=== PATIENT | male | born 1945 | race Caucasian/White ===

== ENCOUNTER → 2020-07-10 | Day surgery (SDC) | payer MEDICARE, OTHER ==
[~2020-07-10] MED LIST: AGGRENOX 25 MG1 EACH PO; ASPIRIN EC81 MG PO; ATORVASTATIN CA10 MG PO; DEXAMETHASONE1 MG PO; ELIQUIS5 MG PO; FAMOTIDINE20 MG PO; FLOMAX 0.4 MG0.4 MG PO; HYDROCODON-ACE1 EAC4 PO; IMDUR ER TAB 6060 MG PO; ISOSORBIDE DINIT5 MG PO; ISOSORBIDE MON120 MG PO; LEVOFLOXACIN500 MG PO; LEVOTHYROXINE50 MCG PO; LOPRESSOR 25 MG25 MG PO; METOPROLOL TART50 MG PO; NATEGLINIDE60 MG PO; NORCO 5-325 TA1 EACH PO; NORVASC5 MG PO; OZEMPIC0.25 MG/0. SC; PROSCAR 5 MG TAB5 MG PO; PROTONIX 40 MG40 M1 PO; RANEXA500 MG PO; RANITIDINE HCL300 MG PO; STARLIX 120 MG120 MG PO; XANAX 0.25 MG0.25 MG PO; ZOCOR20 MG PO
== END | disposition home or self-care (01) ==
LOC: OR 11:26
DX: N40.1 Benign prostatic hyperplasia with lower urinary tract symptoms (principal); R33.8 Other retention of urine; R35.0 Frequency of micturition; R39.11 Hesitancy of micturition; R35.1 Nocturia; N32.89 Other specified disorders of bladder; E03.9 Hypothyroidism, unspecified; F41.9 Anxiety disorder, unspecified; F17.220 Nicotine dependence, chewing tobacco, uncomplicated; N32.9 Bladder disorder, unspecified; Z95.1 Presence of aortocoronary bypass graft; Z79.899 Other long term (current) drug therapy; Z79.01 Long term (current) use of anticoagulants; Z86.73 Personal history of transient ischemic attack (TIA), and cerebral infarction without residual deficits; Z79.890 Hormone replacement therapy; Z95.0 Presence of cardiac pacemaker; Z87.440 Personal history of urinary (tract) infections; Z86.16 Personal history of COVID-19
CPT/HCPCS: 82962; J7040

== ENCOUNTER 2020-10-28 21:59 | Emergency (ER) | payer MEDICARE, OTHER ==
[~2020-10-28 21:59] MED LIST changes: -ATORVASTATIN CA10 MG PO; -FAMOTIDINE20 MG PO; -HYDROCODON-ACE1 EAC4 PO; -LEVOFLOXACIN500 MG PO
[2020-10-29 01:07] LABS: HEMOGLOBIN 14.6 gm/dl (14.0-17.5); RED BLOOD COUNT 5.09 M/UL (4.20-5.50); WHITE BLOOD COUNT 4.5 K/UL (4.5-11.0)
[2020-10-29 01:34] LABS: BUN/CREATININE RATIO 9 (0-10)
== END 2020-10-29 02:45 | disposition home or self-care (01) ==
LOC: ER1 21:59
PROVIDERS: Physician Assistant
DX: R07.89 Other chest pain (principal); E03.9 Hypothyroidism, unspecified; I48.91 Unspecified atrial fibrillation; E11.9 Type 2 diabetes mellitus without complications; I11.0 Hypertensive heart disease with heart failure; I50.9 Heart failure, unspecified; Z95.1 Presence of aortocoronary bypass graft; Z95.0 Presence of cardiac pacemaker
CPT/HCPCS: 71045; 80053; 82550; 82553; 83874; 84484; 85025; 93005; 99285

== ENCOUNTER → 2020-12-04 | Outpatient (CLI) | payer MEDICARE, OTHER ==
[~2020-12-04] MED LIST changes: +ATORVASTATIN CA10 MG PO; +FAMOTIDINE20 MG PO; +HYDROCODON-ACE1 EAC4 PO; +LEVOFLOXACIN500 MG PO; +OMNICEF 300 MG300 MG PO
[2020-12-04 13:03] LABS: HEMOGLOBIN 15.1 gm/dl (14.0-17.5); RED BLOOD COUNT 5.18 M/UL (4.20-5.50); WHITE BLOOD COUNT 6.1 K/UL (4.5-11.0)
== END ==
LOC: LAB 11:49
PROVIDERS: Internal Medicine Cardiovascular Disease
DX: N28.9 Disorder of kidney and ureter, unspecified (principal); I25.10 Atherosclerotic heart disease of native coronary artery without angina pectoris; I10 Essential (primary) hypertension; I49.5 Sick sinus syndrome; R42 Dizziness and giddiness
CPT/HCPCS: 36415; 80048; 85025

== ENCOUNTER 2020-12-06 11:58 | Outpatient (CLI) | payer MEDICARE, OTHER ==
[~2020-12-06] VITALS: Ht 175.3 cm; Wt 91.9 kg
[~2020-12-06 11:58] MED LIST changes: -ATORVASTATIN CA10 MG PO; -FAMOTIDINE20 MG PO; -HYDROCODON-ACE1 EAC4 PO; -LEVOFLOXACIN500 MG PO; -OMNICEF 300 MG300 MG PO
[2020-12-06] MEDS ORDERED: FAMOTIDINE20 MG PO (13:27)
[2020-12-06] MEDS ORDERED: ATORVASTATIN CA10 MG PO (13:28)
[2020-12-06] MEDS ORDERED: HYDROCODON-ACE1 EAC4 PO (15:44)
[2020-12-06] MEDS ORDERED: LEVOFLOXACIN500 MG PO (15:44)
== END 2020-12-07 11:00 | disposition home or self-care (01) ==
LOC: CATH 11:58 → PROG CARE 19:07 → CATH 19:12 → PROG CARE 12-07 11:00
DX: Z45.010 Encounter for checking and testing of cardiac pacemaker pulse generator [battery] (principal); I49.5 Sick sinus syndrome; I25.10 Atherosclerotic heart disease of native coronary artery without angina pectoris; I48.0 Paroxysmal atrial fibrillation; I10 Essential (primary) hypertension; F41.9 Anxiety disorder, unspecified; M19.90 Unspecified osteoarthritis, unspecified site; E11.9 Type 2 diabetes mellitus without complications; E03.9 Hypothyroidism, unspecified; E78.5 Hyperlipidemia, unspecified; Z79.01 Long term (current) use of anticoagulants; Z79.899 Other long term (current) drug therapy; Z95.1 Presence of aortocoronary bypass graft; Z87.891 Personal history of nicotine dependence; Z86.73 Personal history of transient ischemic attack (TIA), and cerebral infarction without residual deficits; Z90.49 Acquired absence of other specified parts of digestive tract; Z86.16 Personal history of COVID-19; Z79.82 Long term (current) use of aspirin
CPT/HCPCS: 33213; 82962; 99152; 99153; C1785; J1200; J2250; J3010; J3370; J7040; J7050

== ENCOUNTER 2020-12-29 10:22 | Emergency (ER) | payer MEDICARE, OTHER ==
[~2020-12-29 10:22] MED LIST changes: +ATORVASTATIN CA10 MG PO; +FAMOTIDINE20 MG PO; +HYDROCODON-ACE1 EAC4 PO; +LEVOFLOXACIN500 MG PO
[2020-12-29 11:22] LABS: HEMOGLOBIN 14.2 gm/dl (14.0-17.5); RED BLOOD COUNT 5.14 M/UL (4.20-5.50); WHITE BLOOD COUNT 4.6 K/UL (4.5-11.0)
[2020-12-29 11:42] LABS: BUN/CREATININE RATIO 9 (0-10)
[2020-12-29] MEDS ORDERED: OMNICEF 300 MG300 MG PO (16:59)
== END 2020-12-29 17:11 | disposition home or self-care (01) ==
LOC: ER1 10:22
PROVIDERS: Emergency Medicine
DX: N30.90 Cystitis, unspecified without hematuria (principal); I11.9 Hypertensive heart disease without heart failure; E11.9 Type 2 diabetes mellitus without complications; Z20.822 Contact with and (suspected) exposure to COVID-19
CPT/HCPCS: 0240U; 71045; 80053; 81001; 82550; 82553; 83605; 83690; 84484; 85025; 93005; 99285; Q9967

== ENCOUNTER 2021-03-03 18:55 | Emergency (ER) | payer MEDICARE, OTHER ==
[~2021-03-03 18:55] MED LIST changes: +OMNICEF 300 MG300 MG PO
[2021-03-03 20:37] LABS: HEMOGLOBIN 14.7 gm/dl (14.0-17.5); RED BLOOD COUNT 5.02 M/UL (4.20-5.50)
== END 2021-03-04 08:53 | disposition home or self-care (01) ==
LOC: ER1 18:55
PROVIDERS: Family Medicine
DX: N40.1 Benign prostatic hyperplasia with lower urinary tract symptoms (principal); R33.8 Other retention of urine; F41.9 Anxiety disorder, unspecified; E78.5 Hyperlipidemia, unspecified; Z79.01 Long term (current) use of anticoagulants; Z90.89 Acquired absence of other organs; Z79.899 Other long term (current) drug therapy
CPT/HCPCS: 51702; 71045; 80053; 81001; 82550; 82553; 82962; 83690; 83874; 84484; 85025; 93005; 99284

== ENCOUNTER 2021-03-08 19:55 | Emergency (ER) | payer MEDICARE, OTHER ==
[2021-03-08 21:27] LABS: HEMOGLOBIN 13.7 gm/dl (14.0-17.5); RED BLOOD COUNT 4.77 M/UL (4.20-5.50); WHITE BLOOD COUNT 5.4 K/UL (4.5-11.0)
[2021-03-08] MEDS ORDERED: CEFUROXIME500 MG PO (23:22)
== END 2021-03-09 00:15 | disposition home or self-care (01) ==
LOC: ER1 19:55
PROVIDERS: Physician Assistant
DX: T83.038A Leakage of other urinary catheter, initial encounter (principal); R31.9 Hematuria, unspecified; I25.10 Atherosclerotic heart disease of native coronary artery without angina pectoris; E11.9 Type 2 diabetes mellitus without complications
CPT/HCPCS: 51702; 80053; 81001; 84484; 85025; 85652; 86140; 87086; 93005; 99284

== ENCOUNTER 2021-03-23 18:33 | Emergency (ER) | payer MEDICARE, OTHER ==
[~2021-03-23 18:33] MED LIST changes: +CEFUROXIME500 MG PO
== END 2021-03-23 21:27 | disposition left against medical advice (07) ==
LOC: ER1 18:33
DX: T83.038A Leakage of other urinary catheter, initial encounter (principal); E11.9 Type 2 diabetes mellitus without complications; I25.2 Old myocardial infarction; I50.9 Heart failure, unspecified; I10 Essential (primary) hypertension; E78.5 Hyperlipidemia, unspecified; Z95.1 Presence of aortocoronary bypass graft
CPT/HCPCS: 99281

== ENCOUNTER 2021-03-31 17:05 | Emergency (ER) | payer MEDICARE, OTHER ==
[2021-03-31 19:57] LABS: HEMOGLOBIN 14.2 gm/dl (14.0-17.5); RED BLOOD COUNT 4.8 M/UL (4.20-5.50); WHITE BLOOD COUNT 4.2 K/UL (4.5-11.0)
[2021-03-31] MEDS ORDERED: OMNICEF 300 MG300 MG PO (22:32)
== END 2021-03-31 23:50 | disposition home or self-care (01) ==
LOC: ER1 17:05
PROVIDERS: Family Medicine
DX: N39.0 Urinary tract infection, site not specified (principal); R33.9 Retention of urine, unspecified; R14.0 Abdominal distension (gaseous); Z95.1 Presence of aortocoronary bypass graft; Z95.0 Presence of cardiac pacemaker
CPT/HCPCS: 51702; 80053; 81001; 85025; 96374; 99284; J0696

== ENCOUNTER 2021-04-24 19:28 | Emergency (ER) | payer MEDICARE, OTHER ==
[2021-04-24] MEDS ORDERED: LACTULOSE20 GM/30 M PO (22:29)
== END 2021-04-24 22:38 | disposition home or self-care (01) ==
LOC: ER1 19:28
DX: T83.038A Leakage of other urinary catheter, initial encounter (principal); K59.00 Constipation, unspecified; E11.9 Type 2 diabetes mellitus without complications; I10 Essential (primary) hypertension; Z95.0 Presence of cardiac pacemaker; Z95.1 Presence of aortocoronary bypass graft
CPT/HCPCS: 51702; 99283

== ENCOUNTER 2021-05-20 19:10 | Emergency (ER) | payer MEDICARE, OTHER ==
[~2021-05-20 19:10] MED LIST changes: +LACTULOSE20 GM/30 M PO
[2021-05-20 20:19] LABS: RED BLOOD COUNT 5.03 M/UL (4.20-5.50); WHITE BLOOD COUNT 4.9 K/UL (4.5-11.0)
[2021-05-20] MEDS ORDERED: OMNICEF 300 MG300 MG PO (23:35)
== END 2021-05-21 00:06 | disposition home or self-care (01) ==
LOC: ER1 19:10
PROVIDERS: Physician Assistant
DX: T83.038A Leakage of other urinary catheter, initial encounter (principal); N39.0 Urinary tract infection, site not specified; I51.9 Heart disease, unspecified; I25.2 Old myocardial infarction; E11.9 Type 2 diabetes mellitus without complications; F17.220 Nicotine dependence, chewing tobacco, uncomplicated; Z95.1 Presence of aortocoronary bypass graft; Z95.0 Presence of cardiac pacemaker; Z90.79 Acquired absence of other genital organ(s); Y83.8 Other surgical procedures as the cause of abnormal reaction of the patient, or of later complication, without mention of misadventure at the time of the procedure
CPT/HCPCS: 80053; 81001; 83690; 85025; 87086; 99284; Q9967

== ENCOUNTER 2021-05-31 18:44 | Emergency (ER) | payer MEDICARE, OTHER ==
[~2021-05-31 18:44] MED LIST changes: -ATORVASTATIN CA10 MG PO
[2021-06-03] MEDS ORDERED: ATORVASTATIN CA10 MG PO (13:28)
== END 2021-05-31 20:55 | disposition home or self-care (01) ==
LOC: ER1 18:44
DX: Z46.6 Encounter for fitting and adjustment of urinary device (principal); I11.9 Hypertensive heart disease without heart failure; I51.9 Heart disease, unspecified; E11.9 Type 2 diabetes mellitus without complications; Z95.0 Presence of cardiac pacemaker
CPT/HCPCS: 51702; 99283

== ENCOUNTER 2021-06-18 20:47 | Emergency (ER) | payer MEDICARE, OTHER ==
[~2021-06-18 20:47] MED LIST changes: +ATORVASTATIN CA10 MG PO
[2021-06-18 23:52] LABS: HEMOGLOBIN 16.1 gm/dl (14.0-17.5); RED BLOOD COUNT 5.44 M/UL (4.20-5.50); WHITE BLOOD COUNT 5.4 K/UL (4.5-11.0)
[2021-06-19] MEDS ORDERED: CEFUROXIME500 MG PO (00:30)
[2021-06-19] MEDS ORDERED: COLACE 100MG C100 MG PO (00:30)
== END 2021-06-19 01:03 | disposition home or self-care (01) ==
LOC: ER1 20:47
PROVIDERS: Physician Assistant
DX: T83.038A Leakage of other urinary catheter, initial encounter (principal); N39.0 Urinary tract infection, site not specified; X58.XXXA Exposure to other specified factors, initial encounter
CPT/HCPCS: 51702; 80053; 81001; 83690; 85025; 87086; 99283

== ENCOUNTER 2021-06-30 20:14 | Emergency (ER) | payer MEDICARE, OTHER ==
[~2021-06-30 20:14] MED LIST changes: +COLACE 100MG C100 MG PO
== END 2021-07-01 01:18 | disposition left against medical advice (07) ==
LOC: ER1 20:14
DX: Z53.21 Procedure and treatment not carried out due to patient leaving prior to being seen by health care provider (principal)

== ENCOUNTER 2021-07-07 23:36 | Emergency (ER) | payer MEDICARE, OTHER ==
[2021-07-08 00:25] LABS: RED BLOOD COUNT 4.98 M/UL (4.20-5.50); WHITE BLOOD COUNT 5.1 K/UL (4.5-11.0)
[2021-07-08 00:56] LABS: BUN/CREATININE RATIO 11 (0-10)
== END 2021-07-08 02:16 | disposition home or self-care (01) ==
LOC: ER1 23:36
PROVIDERS: Family Medicine
DX: R06.02 Shortness of breath (principal)
CPT/HCPCS: 80053; 82550; 82553; 82962; 83874; 84484; 85025; 93005; 99285

== ENCOUNTER 2021-07-28 09:28 | Emergency (ER) | payer MEDICARE, OTHER ==
[2021-07-28 12:00] LABS: HEMOGLOBIN 14.5 gm/dl (14.0-17.5); RED BLOOD COUNT 4.82 M/UL (4.20-5.50); WHITE BLOOD COUNT 5.6 K/UL (4.5-11.0)
[2021-07-28 12:15] LABS: BUN/CREATININE RATIO 9 (0-10)
[2021-07-28] MEDS ORDERED: CEFPODOXIME PR200 MG PO (16:37)
== END 2021-07-28 16:50 | disposition home or self-care (01) ==
LOC: ER1 09:28
PROVIDERS: Emergency Medicine
DX: N39.0 Urinary tract infection, site not specified (principal); R53.1 Weakness; Z20.822 Contact with and (suspected) exposure to COVID-19
CPT/HCPCS: 0240U; 71045; 80053; 81001; 82550; 82553; 82962; 83735; 83874; 84484; 85025; 87086; 93005; 96374; 99285; J0696

== ENCOUNTER 2021-08-11 18:20 | Observation (INO) | payer MEDICARE, OTHER ==
[~2021-08-11] VITALS: Ht 175.3 cm; Wt 90.7 kg
[~2021-08-11 18:20] MED LIST changes: +CEFPODOXIME PR200 MG PO
[2021-08-11 19:13] LABS: HEMOGLOBIN 15.3 gm/dl (14.0-17.5); RED BLOOD COUNT 5.22 M/UL (4.20-5.50); WHITE BLOOD COUNT 5.2 K/UL (4.5-11.0)
[2021-08-12 04:43] LABS: HEMOGLOBIN 14.2 gm/dl (14.0-17.5); RED BLOOD COUNT 4.87 M/UL (4.20-5.50); WHITE BLOOD COUNT 4.6 K/UL (4.5-11.0)
[2021-08-13 03:55] LABS: HEMOGLOBIN 14.4 gm/dl (14.0-17.5); RED BLOOD COUNT 4.93 M/UL (4.20-5.50); WHITE BLOOD COUNT 5.2 K/UL (4.5-11.0)
[2021-08-13] MEDS ORDERED: ATORVASTATIN CA20 MG PO (09:27)
--- NOTE | 2021-08-13 14:20 | NUR ---
REPORT CALLED TO [facility], PT UNABLE TO LEAVE AT THIS TIME DUE TO FAMILY [facility].
== END 2021-08-13 18:32 | disposition home health service (06) ==
LOC: ER1 18:20 → CDU 20:16 → MED SURG 4 20:16
PROVIDERS: Internal Medicine; Physician Assistant; ADMIT Internal Medicine
DX: R07.89 Other chest pain (principal); I25.10 Atherosclerotic heart disease of native coronary artery without angina pectoris; I49.5 Sick sinus syndrome; E78.5 Hyperlipidemia, unspecified; E11.22 Type 2 diabetes mellitus with diabetic chronic kidney disease; I12.9 Hypertensive chronic kidney disease with stage 1 through stage 4 chronic kidney disease, or unspecified chronic kidney disease; N18.9 Chronic kidney disease, unspecified; R53.1 Weakness; N40.0 Benign prostatic hyperplasia without lower urinary tract symptoms; R53.83 Other fatigue; R42 Dizziness and giddiness; H93.19 Tinnitus, unspecified ear; E03.9 Hypothyroidism, unspecified; F17.290 Nicotine dependence, other tobacco product, uncomplicated; I25.2 Old myocardial infarction; Z95.1 Presence of aortocoronary bypass graft; Z95.0 Presence of cardiac pacemaker; Z98.890 Other specified postprocedural states; Z86.73 Personal history of transient ischemic attack (TIA), and cerebral infarction without residual deficits; Z90.49 Acquired absence of other specified parts of digestive tract; Z82.49 Family history of ischemic heart disease and other diseases of the circulatory system; Z79.01 Long term (current) use of anticoagulants; Z20.822 Contact with and (suspected) exposure to COVID-19
CPT/HCPCS: ECHO; 36415; 71045; 80048; 80053; 80061; 81001; 82550; 82553; 82962; 83036; 83880; 84439; 84443; 84484; 85025; 85027; 85379; 85610; 85730; 93005; 93306; 97161; 99285; G0378; U0002

== ENCOUNTER 2021-09-07 21:54 | Emergency (ER) | payer MEDICARE, OTHER ==
[~2021-09-07 21:54] MED LIST changes: +ATORVASTATIN CA20 MG PO
[2021-09-07 23:40] LABS: HEMOGLOBIN 16.3 gm/dl (14.0-17.5); RED BLOOD COUNT 5.36 M/UL (4.20-5.50); WHITE BLOOD COUNT 5.9 K/UL (4.5-11.0)
== END 2021-09-08 05:28 | disposition home or self-care (01) ==
LOC: ER1 21:54
PROVIDERS: Physician Assistant Medical
DX: I11.9 Hypertensive heart disease without heart failure (principal); E11.9 Type 2 diabetes mellitus without complications; E78.5 Hyperlipidemia, unspecified; Z95.0 Presence of cardiac pacemaker
CPT/HCPCS: 80053; 81001; 85025; 87077; 87086; 87186; 99284

== ENCOUNTER 2021-10-26 18:27 | Emergency (ER) | payer MEDICARE, OTHER ==
[~2021-10-26 18:27] MED LIST changes: +LIPITOR TAB 2020 MG PO; +OXYBUTYNIN CHLO10 MG PO
[2021-10-26 20:53] LABS: HEMOGLOBIN 15.1 gm/dl (14.0-17.5); RED BLOOD COUNT 5.09 M/UL (4.20-5.50)
== END 2021-10-26 23:28 | disposition home or self-care (01) ==
LOC: ER1 18:27
PROVIDERS: Physician Assistant
DX: R53.1 Weakness (principal); R42 Dizziness and giddiness; Z96.0 Presence of urogenital implants; I11.9 Hypertensive heart disease without heart failure; E11.9 Type 2 diabetes mellitus without complications; Z95.1 Presence of aortocoronary bypass graft; I10 Essential (primary) hypertension; Z95.0 Presence of cardiac pacemaker; Z20.822 Contact with and (suspected) exposure to COVID-19
CPT/HCPCS: 0240U; 70450; 71045; 80053; 81001; 82550; 82553; 83605; 83690; 83735; 84484; 85025; 87086; 99285

== ENCOUNTER 2021-10-29 19:41 | Emergency (ER) | payer MEDICARE, OTHER ==
[2021-10-29 21:29] LABS: HEMOGLOBIN 14.5 gm/dl (14.0-17.5); RED BLOOD COUNT 4.93 M/UL (4.20-5.50); WHITE BLOOD COUNT 4.6 K/UL (4.5-11.0)
[2021-10-29 21:55] LABS: BUN/CREATININE RATIO 10 (0-10)
== END 2021-10-30 02:22 | disposition home or self-care (01) ==
LOC: ER1 19:41
PROVIDERS: Physician Assistant
DX: R10.9 Unspecified abdominal pain (principal); R53.83 Other fatigue; I25.10 Atherosclerotic heart disease of native coronary artery without angina pectoris; I25.2 Old myocardial infarction; I10 Essential (primary) hypertension; Z79.84 Long term (current) use of oral hypoglycemic drugs
CPT/HCPCS: 70450; 71045; 80053; 82150; 82550; 82553; 83605; 83690; 83735; 84439; 84443; 84484; 85025; 93005; 99284; Q9967

== ENCOUNTER 2022-01-11 21:30 | Emergency (ER) | payer MEDICARE, OTHER ==
[2022-01-12 00:32] LABS: HEMOGLOBIN 14.1 gm/dl (14.0-17.5); RED BLOOD COUNT 4.72 M/UL (4.20-5.50); WHITE BLOOD COUNT 7.9 K/UL (4.5-11.0)
[2022-01-12] MEDS ORDERED: GOLYTELY 40004000 ML PO (05:03)
== END 2022-01-12 05:42 | disposition home or self-care (01) ==
LOC: ER1 21:30
PROVIDERS: Physician Assistant
DX: K59.00 Constipation, unspecified (principal); T83.9XXA Unspecified complication of genitourinary prosthetic device, implant and graft, initial encounter; K56.7 Ileus, unspecified; I11.9 Hypertensive heart disease without heart failure; E78.5 Hyperlipidemia, unspecified
CPT/HCPCS: 80053; 81001; 83690; 85025; 87086; 99284; Q9967

== ENCOUNTER 2022-01-12 09:39 | Emergency (ER) | payer MEDICARE, OTHER ==
[~2022-01-12 09:39] MED LIST changes: +GOLYTELY 40004000 ML PO
== END 2022-01-12 11:25 | disposition home or self-care (01) ==
LOC: ER1 09:39
DX: T83.098A Other mechanical complication of other urinary catheter, initial encounter (principal); I11.9 Hypertensive heart disease without heart failure; E11.9 Type 2 diabetes mellitus without complications
CPT/HCPCS: 81001; 99283

== ENCOUNTER 2022-01-29 20:42 | Emergency (ER) | payer MEDICARE, OTHER ==
[2022-01-29 21:41] LABS: HEMOGLOBIN 14.9 gm/dl (14.0-17.5); RED BLOOD COUNT 5.07 M/UL (4.20-5.50); WHITE BLOOD COUNT 5.5 K/UL (4.5-11.0)
[2022-01-30] MEDS ORDERED: FLONASE 0.05% N16 GM (01:58)
== END 2022-01-30 02:54 | disposition home or self-care (01) ==
LOC: ER1 20:42
PROVIDERS: Physician Assistant
DX: J06.9 Acute upper respiratory infection, unspecified (principal); I10 Essential (primary) hypertension; Z95.1 Presence of aortocoronary bypass graft; Z90.49 Acquired absence of other specified parts of digestive tract; Z20.822 Contact with and (suspected) exposure to COVID-19
CPT/HCPCS: 0240U; 70450; 71045; 80053; 82550; 82553; 84484; 85025; 93005; 99285

== ENCOUNTER → 2022-02-22 | Outpatient (CLI) | payer MEDICARE, OTHER ==
[~2022-02-22] MED LIST changes: +FLONASE 0.05% N16 GM
== END ==
LOC: LAB 14:55
PROVIDERS: Nurse Practitioner Family
DX: E53.8 Deficiency of other specified B group vitamins (principal); E03.9 Hypothyroidism, unspecified; N28.9 Disorder of kidney and ureter, unspecified
CPT/HCPCS: 36415; 80048; 82607; 82746; 84439; 84443

== ENCOUNTER 2022-03-02 16:30 | Emergency (ER) | payer MEDICARE, OTHER ==
[2022-03-02 17:29] LABS: HEMOGLOBIN 13.8 gm/dl (14.0-17.5); RED BLOOD COUNT 4.74 M/UL (4.20-5.50); WHITE BLOOD COUNT 3.9 K/UL (4.5-11.0)
== END 2022-03-02 21:03 | disposition home or self-care (01) ==
LOC: ER1 16:30
PROVIDERS: Student in an Organized Health Care Education/Training Program
DX: H81.10 Benign paroxysmal vertigo, unspecified ear (principal); R53.1 Weakness; E11.9 Type 2 diabetes mellitus without complications; I11.9 Hypertensive heart disease without heart failure; Z90.49 Acquired absence of other specified parts of digestive tract; Z95.0 Presence of cardiac pacemaker
CPT/HCPCS: 71045; 80053; 81001; 84484; 85025; 93005; 96360; 99285